=== PATIENT | male | born 1945 | race Caucasian/White ===

== ENCOUNTER 2021-07-18 16:01 | Inpatient (IN) | payer MEDICARE ==
[~2021-07-18] VITALS: Ht 177.8 cm; Wt 72.6 kg
[2021-07-18 16:43] LABS: BASOPHILS ABSOLUTE AUTO 0.03 K/mm3 (0.00-0.23); BASOPHILS PERCENT AUTO 0 % (0-2); EOSINOPHILS ABSOLUTE AUTO 0.02 K/mm3 (0.00-0.68); EOSINOPHILS PERCENT AUTO 0 % (0-6); Hematocrit 31.8 % (37.0-53.0); Hemoglobin 10.6 g/dL (13.5-17.5); IMMATURE GRAN PERCENT AUTO 1 % (0-1); LYMPHOCYTES ABSOLUTE AUTO 0.41 K/mm3 (0.84-5.20); LYMPHOCYTES PERCENT AUTO 4 % (21-46); MONOCYTES ABSOLUTE AUTO 0.52 K/mm3 (0.16-1.47); MONOCYTES PERCENT AUTO 5 % (4-13); Mean Corpuscular HGB 34.9 pg (26.0-34.0); Mean Corpuscular HGB Conc 33.3 g/dL (31.5-36.5); Mean Corpuscular Volume 105 fL (80-100); Mean Platelet Volume 12.1 fL (9.1-12.4); NEUTROPHILS ABSOLUTE AUTO 8.93 K/mm3 (1.96-9.15); NEUTROPHILS PERCENT AUTO 89 % (41-73); Platelet Count 153 K/mm3 (150-400); RDW Coefficient Variation 14.2 % (11.7-14.2); RDW Standard Deviation 54.5 fL (35.1-46.3); Red Blood Cell Count 3.04 M/mm3 (4.30-5.90); White Blood Cell Count 10.01 K/mm3 (4.00-11.30)
[2021-07-18 16:58] LABS: International Normalized Ratio 1.43; Prothrombin Time Results 14.7 Sec (9.7-11.5)
[2021-07-18 17:02] LABS: Albumin, Blood 1.8 g/dL (3.4-5.0); Albumin/Globulin Ratio 0.4 (0.8-1.8); Bun/Creatinine Ratio 16.7 (12.0-20.0); Calcium, Blood 8.8 mg/dL (8.5-10.1); Creatinine, Blood 2.1 mg/dL (0.60-1.20); Globulin, Blood 4.2 g/dL (2.2-4.0); Potassium, Blood 2.8 mmol/L (3.5-5.5)
[2021-07-18] MEDS ORDERED: TAMSULOSIN HCL0.4 M1 PO (20:41)
[2021-07-18] MEDS ORDERED: POTCHL20ER PO (20:47)
[2021-07-18] MEDS ORDERED: Serevent Disku50 MCG IH (20:47)
[2021-07-18] MEDS ORDERED: OMEP20ER PO (20:47)
[2021-07-18] MEDS ORDERED: SPIRIVA RESPIMAT4 G3 IH (20:48)
[2021-07-18] MEDS ORDERED: Ventolin/Prove6.7 GM INH (20:48)
--- NOTE | 2021-07-18 21:55 | NUR ---
2150 recieved report from CRISTHIAN Ochoa RN here at [facility]--------->Pt to go into room 9 [facility] TERI Villegas
[2021-07-18 22:08] LABS: Hematocrit 25.1 % (37.0-53.0); Hemoglobin 8.3 g/dL (13.5-17.5)
[2021-07-18 22:25] LABS: Bun/Creatinine Ratio 18.5 (12.0-20.0); Creatinine, Blood 2.11 mg/dL (0.60-1.20); Potassium, Blood 4.5 mmol/L (3.5-5.5)
[2021-07-19 02:35] LABS: BASOPHILS ABSOLUTE AUTO 0.01 K/mm3 (0.00-0.23); BASOPHILS PERCENT AUTO 0 % (0-2); EOSINOPHILS ABSOLUTE AUTO 0.02 K/mm3 (0.00-0.68); EOSINOPHILS PERCENT AUTO 0 % (0-6); Hematocrit 26.3 % (37.0-53.0); Hemoglobin 8.7 g/dL (13.5-17.5); IMMATURE GRAN ABSOLUTE AUTO 0.05 K/mm3 (0.00-0.10); IMMATURE GRAN PERCENT AUTO 1 % (0-1); LYMPHOCYTES ABSOLUTE AUTO 0.36 K/mm3 (0.84-5.20); LYMPHOCYTES PERCENT AUTO 6 % (21-46); MONOCYTES ABSOLUTE AUTO 0.32 K/mm3 (0.16-1.47); MONOCYTES PERCENT AUTO 6 % (4-13); Mean Corpuscular HGB 35.2 pg (26.0-34.0); Mean Corpuscular HGB Conc 33.1 g/dL (31.5-36.5); Mean Corpuscular Volume 107 fL (80-100); Mean Platelet Volume 11.2 fL (9.1-12.4); NEUTROPHILS ABSOLUTE AUTO 4.86 K/mm3 (1.96-9.15); NEUTROPHILS PERCENT AUTO 86 % (41-73); Platelet Count 116 K/mm3 (150-400); RDW Coefficient Variation 14.3 % (11.7-14.2); RDW Standard Deviation 56.5 fL (35.1-46.3); Red Blood Cell Count 2.47 M/mm3 (4.30-5.90); White Blood Cell Count 5.62 K/mm3 (4.00-11.30)
[2021-07-19 02:50] LABS: International Normalized Ratio 1.35; Prothrombin Time Results 13.9 Sec (9.7-11.5)
[2021-07-19 03:03] LABS: Albumin, Blood 1.5 g/dL (3.4-5.0); Albumin/Globulin Ratio 0.4 (0.8-1.8); Bilirubin, Total 7.1 mg/dL (0.1-1.0); Calcium, Blood 7.7 mg/dL (8.5-10.1); Creatinine, Blood 2.1 mg/dL (0.60-1.20); Globulin, Blood 3.4 g/dL (2.2-4.0); Total Protein, Blood 4.9 g/dL (6.4-8.2)
--- NOTE | 2021-07-19 09:44 | NUR ---
AM NOTE: PATIENT ALERT AND ORIENTED X4. VERY WEAK AND LETHARGIC. ABLE TO MOVE ALL EXTREMITIES. DENIES NUMBNESS/TINGLING. SKIN OVERALL YELLOW. PERRLA. ON ROOM AIR SATING ABOVE 95%. COMPLAINS OF INTERMIT SOB. LUNGS SOUNDING DIM AND CLEAR. INCREASED RR AT REST, AT TIMES UP IN 30'S. TELE SHOWING SINUS RHYTHM/SINUS TACH WITH HR 90-110'S. SOFT BP, STABLE MAP. DENIES CHEST PAIN/PRESSURE. DISTENDED ABDOMEN. DENIES ABDOMINAL PAIN/NAUSEA HYPOACTIVE BOWEL TONES. ONE EPISODE OF DIARRHEA THIS AM. BROWN IN COLOR AND LIQUID/JELLY LIKE. NO SIGNS OF BLEED. DR. BUCK CALLED THIS AM, LET THIS RN KNOW THAT THERE ARE NO ENDO NURSES THIS WEEKEND. UPDATED ABOUT STOOL THIS AM. MINIMAL URINE OUTPUT, BLADDER SCAN PRN. LR AND PROTONIX INFUSING AT THIS TIME. CLEAR LIQUID DIET. WILL CONTINUE TO MONITOR.
--- NOTE | 2021-07-19 12:39 | NUR ---
UPDATE: DR. BRADSHAW IN TO SEE PATIENT. PLAN TO TRANSFUSE 1 UNIT OF BLOOD. NORMAL SALINE WITH KCL INFUSING AT THIS TIME. PATIENT EATING LUNCH. BLOOD PRESSURE SOFT, WILL CONTINUE TO MONITOR. NO URINE OUTPUT YET THIS SHIFT. BLADDER SCAN DONE, 127 ML SHOWN. WILL CONTINUE TO MONITOR.
[2021-07-19 13:21] LABS: Source, Urine Clean Catch
[2021-07-19 13:26] LABS: Appearance, Urine Turbid (Clear); Blood, Urine 1+ (Neg); Color, Urine Brown (P-Yellow); Glucose Qualitative, Urine Neg (Neg); Ketones, Urine 2+ (Neg); Leukocyte Esterase, Urine 1+ (Neg); Nitrite, Urine Pos (Neg); Protein, Urine 2+ (Neg); Urobilinogen, Urine 3+ (Normal)
[2021-07-19 13:49] LABS: Bilirubin, Urine 3+ (Neg)
[2021-07-19 13:50] LABS: Bacteria Many /hpf; Squamous Epithelial Cells Few /hpf (Few)
[2021-07-19 13:51] LABS: Hyaline Casts 0-2 /lpf (0-2)
[2021-07-19 13:54] LABS: Mucus Light (0-Heavy)
--- NOTE | 2021-07-19 17:20 | NUR ---
SHIFT SUMMARY: NO ACUTE CHANGES, PATIENT REMAINS VERY TIRED AND LETHARGIC. SLEEPING MOST OF AFTERNOON/EVENING. ALERT AND ORIENTED. AT TIMES SLOW TO RESPOND. REMAINS ON ROOM AIR. NO CHANGES IN TELE - SINUS RHYTHM/SINUS TACH WITH HR 90-110'S. DENIES CHEST PAIN/PRESSURE. BP ON SOFTER SIDE. SEE CHARTED VITALS. CALL PLACED TO UPDATE DR. BRADSHAW ON BP. NO NEW ORDERS, THIS RN TO CONTINUE TO MONITOR BP CLOSELY. 1 UNIT OF PACKED RBC INFUSED. NS WITH 20 MEQ OF KCL INFUSING AT 75 ML/HR. NO SIGNS OF BLEEDING. NO STOOLS SINCE THIS AM. BLADDER SCANNED X2 THIS SHIFT. URINE OUTPUT 200ML TOTAL SO FAR, VERY DARK BRADY/BROWN COLORED URINE. TOLERATING FULL LIQUID DIET AT THIS TIME. EATING MODERATE AMOUNT. CALL LIGHT IN REACH. WILL CONTINUE TO MONITOR.
--- NOTE | 2021-07-20 03:57 | NUR ---
Overnoc with acid reflux, paged and ordered pepcid 20mg one time dose, some relief but I suspect he will need more coverage than current regimine prilosec 40mg BID. VSS, room air, afebrile, one large dark brown stool formed, will continue to monitor TERI Villegas
[2021-07-20 04:58] LABS: Hematocrit 30.4 % (37.0-53.0); Hemoglobin 10.1 g/dL (13.5-17.5); Mean Corpuscular HGB 35.1 pg (26.0-34.0); Mean Corpuscular HGB Conc 33.2 g/dL (31.5-36.5); Mean Corpuscular Volume 106 fL (80-100); Mean Platelet Volume 11.2 fL (9.1-12.4); Platelet Count 134 K/mm3 (150-400); RDW Coefficient Variation 15.7 % (11.7-14.2); RDW Standard Deviation 61.7 fL (35.1-46.3); Red Blood Cell Count 2.88 M/mm3 (4.30-5.90); White Blood Cell Count 4.27 K/mm3 (4.00-11.30)
[2021-07-20 05:14] LABS: International Normalized Ratio 1.28; Prothrombin Time Results 13.2 Sec (9.7-11.5)
[2021-07-20 05:43] LABS: Albumin, Blood 1.4 g/dL (3.4-5.0); Anion Gap 13 mmol/L (6-16); Blood Urea Nitrogen 40 mg/dL (8-24); Bun/Creatinine Ratio 32.3 (12.0-20.0); CO2, Blood 21 mmol/L (21-32); Chloride, Blood 104 mmol/L (98-108); Creatinine, Blood 1.24 mg/dL (0.60-1.20); Glomerular Filtration Rate 61 (60-); Glucose, Blood 108 mg/dL (70-99); Phosphorus, Blood 2.5 mg/dL (2.5-4.9); Potassium, Blood 3.3 mmol/L (3.5-5.5); Sodium, Blood 138 mmol/L (136-145)
--- NOTE | 2021-07-20 10:02 | NUR ---
AM NOTE: PATIENT ALERT AND ORIENTED X4. NEURO WNL. VERY LETHARGIC AND TIRED. WEAKNESS THROUGHOUT. TELE SHOWING SINUS TACH WITH HR 100-110'S. DENIES CHEST PAIN/PRESSURE. BP ON SOFTER SIDE. ON ROOM AIR SATING HIGH 90'S. LUNGS SOUNDING CLEAR. OCCASIONAL SOB WITH TALKING AND AT REST IN BED. DENIES ABDOMINAL PAIN/NAUSEA. COMPLAINS OF ACID REFLUX SYMPTOMS, MORN OMEPRAZOLE GIVEN WITH NO RELIEF. CALL PLACED TO DR. BRADSHAW, MESSAGE LEFT. PATIENT WANTING TO HOLD OFF ON OTHER MORN MEDS UNTIL ACID REFLUX RESOLVES. NO BM YET THIS SHIFT. USING URINAL AND OCCASIONAL INCONTINENCE. BLADDER SCAN NEEDED. DR. DOUGHERTY IN TO SEE PATIENT THIS AM, NO NEW ORDERS. NS WITH KCL INFUSING AT 75 ML/HR. CALL LIGHT IN REACH. WILL CONITNUE TO MONITOR.
--- NOTE | 2021-07-20 13:15 | NUR ---
UPDATE - TELE EVENT SHOWING 9 RUN BEAT OF VTACH, NONSYMPTOMATIC. PATIENT ALSO STILL COMPLAINING OF ACID REFLUX, NO RELIEF WITH MAALOX. DR. NATION HERE AND UPDATED IN PERSON. VITALS SIGNS REMAINS STABLE. BROTHER AND SISTER IN ROOM.
--- NOTE | 2021-07-20 18:18 | NUR ---
SHIFT SUMMARY: NO ACUTE CHANGES. SEE PREVIOUS NOTE. NO CHANGES TO NEURO. ON ROOM AIR. TELE REMAINS SINUS TACH WITH HR 100-110'S. DENIES CP. DENIES NAUSEA. COMPLAINS OF ACID REFLUX THROUGHOUT SHIFT WITH MODERATE RELIEF WITH INTERVENTIONS, SEE EMAR. NS WITH KCL INFUSING AT THIS TIME. USING URINAL. NO BOWEL MOVEMENTS THIS SHIFT. PHYSICAL THERAPY ORDERED. BROTHER AND IN TO VISIT. CALLING FOR NEEDS. Q2 TURNING AND NEEDED. THIS RN IN TO HELP PATIENT SIT ON EDGE OF BED AND DO SOME LEG EXERCISES. VERY WEAK OVERALL. UNABLE TO STAND SAFELY WITH THIS RN AT THAT TIME. WILL CONTINUE TO MONITOR AND REPORT OFF TO ONCOMING RN.
[2021-07-21 04:28] LABS: BASOPHILS ABSOLUTE AUTO 0.01 K/mm3 (0.00-0.23); BASOPHILS PERCENT AUTO 0 % (0-2); EOSINOPHILS ABSOLUTE AUTO 0.05 K/mm3 (0.00-0.68); EOSINOPHILS PERCENT AUTO 1 % (0-6); Hematocrit 31.3 % (37.0-53.0); Hemoglobin 10.3 g/dL (13.5-17.5); IMMATURE GRAN ABSOLUTE AUTO 0.05 K/mm3 (0.00-0.10); IMMATURE GRAN PERCENT AUTO 1 % (0-1); LYMPHOCYTES ABSOLUTE AUTO 0.41 K/mm3 (0.84-5.20); LYMPHOCYTES PERCENT AUTO 9 % (21-46); MONOCYTES ABSOLUTE AUTO 0.35 K/mm3 (0.16-1.47); MONOCYTES PERCENT AUTO 8 % (4-13); Mean Corpuscular HGB Conc 32.9 g/dL (31.5-36.5); Mean Corpuscular Volume 107 fL (80-100); NEUTROPHILS ABSOLUTE AUTO 3.51 K/mm3 (1.96-9.15); NEUTROPHILS PERCENT AUTO 80 % (41-73); Platelet Count 169 K/mm3 (150-400); RDW Coefficient Variation 15.4 % (11.7-14.2); RDW Standard Deviation 60.8 fL (35.1-46.3); Red Blood Cell Count 2.94 M/mm3 (4.30-5.90); White Blood Cell Count 4.38 K/mm3 (4.00-11.30)
[2021-07-21 04:45] LABS: International Normalized Ratio 1.17; Prothrombin Time Results 12.2 Sec (9.7-11.5)
[2021-07-21 05:02] LABS: Albumin, Blood 1.6 g/dL (3.4-5.0); Albumin/Globulin Ratio 0.4 (0.8-1.8); Bilirubin, Total 3.4 mg/dL (0.1-1.0); Bun/Creatinine Ratio 42.6 (12.0-20.0); Calcium, Blood 8.2 mg/dL (8.5-10.1); Creatinine, Blood 0.73 mg/dL (0.60-1.20); Globulin, Blood 3.7 g/dL (2.2-4.0); Potassium, Blood 3.8 mmol/L (3.5-5.5); Total Protein, Blood 5.3 g/dL (6.4-8.2)
--- NOTE | 2021-07-21 06:02 | NUR ---
SHIFT SUMMARY A/O X3. VITAL SIGNS STABLE. PT REPORTS FEELING BETTER THIS EVENING AND STATES THAT HIS ACID REFLUX HAS IMPROVED. MINIMAL VOIDS THIS SHIFT. PT SLEPT THROUGHOUT THE NIGHT. NO PAIN REPORTED. TOLERATING PO INTAKE. WILL CONTINUE TO MONITOR AND REPORT TO ONCOMING RN.
[2021-07-21 17:20] LABS: Albumin, Blood 1.6 g/dL (3.4-5.0)
--- NOTE | 2021-07-21 17:32 | NUR ---
Shift Summary Pt alert, oriented to person, place, event, time; intermittent confusion noted when first waking up; flat and withdrawn, cooperative with care. Pt resting in bed, encouraged to move q2 turn, pt denlines assistance. Pt denies pain, chest pain, sob, nausea and and dizziness. Pt report gerd symptoms, abd mod distended, firm with hypoactive bowel tones X4 quad, appears to be tolerating full liquid diet well. Pt tele sinus tach this am, bp stable. ls clear t/o dim bases, spo >90% on ra, breathing even and unlabored. CT abd compelted this am, Dr Barraza placed order for Gi consult, notified Dr Barraza no GI for the next 4 days. Plans for paracentesis tomorrow 07/22/21 with albumin administration. Other vss. No other acute changes noted. Will continue to monitor unitl report given to oncoming rn.
[2021-07-22 04:33] LABS: BASOPHILS ABSOLUTE AUTO 0.02 K/mm3 (0.00-0.23); BASOPHILS PERCENT AUTO 0 % (0-2); EOSINOPHILS ABSOLUTE AUTO 0.08 K/mm3 (0.00-0.68); EOSINOPHILS PERCENT AUTO 2 % (0-6); Hematocrit 32.2 % (37.0-53.0); Hemoglobin 10.3 g/dL (13.5-17.5); IMMATURE GRAN ABSOLUTE AUTO 0.08 K/mm3 (0.00-0.10); IMMATURE GRAN PERCENT AUTO 2 % (0-1); LYMPHOCYTES ABSOLUTE AUTO 0.51 K/mm3 (0.84-5.20); LYMPHOCYTES PERCENT AUTO 11 % (21-46); MONOCYTES ABSOLUTE AUTO 0.29 K/mm3 (0.16-1.47); MONOCYTES PERCENT AUTO 6 % (4-13); Mean Corpuscular HGB 34.8 pg (26.0-34.0); Mean Corpuscular Volume 109 fL (80-100); NEUTROPHILS PERCENT AUTO 79 % (41-73); Platelet Count 219 K/mm3 (150-400); RDW Coefficient Variation 15.1 % (11.7-14.2); RDW Standard Deviation 61.4 fL (35.1-46.3); Red Blood Cell Count 2.96 M/mm3 (4.30-5.90); White Blood Cell Count 4.78 K/mm3 (4.00-11.30)
[2021-07-22 05:05] LABS: Albumin, Blood 1.6 g/dL (3.4-5.0); Albumin/Globulin Ratio 0.4 (0.8-1.8); Bilirubin, Total 2.8 mg/dL (0.1-1.0); Calcium, Blood 7.9 mg/dL (8.5-10.1); Creatinine, Blood 0.54 mg/dL (0.60-1.20); Globulin, Blood 3.7 g/dL (2.2-4.0); Potassium, Blood 4.4 mmol/L (3.5-5.5); Total Protein, Blood 5.3 g/dL (6.4-8.2)
--- NOTE | 2021-07-22 05:12 | NUR ---
SHIFT SUMMARY RECEIVED REPORT FROM TERI MCCOY AT APPROX 0045 AND ASSUMED CARE OF PATIENT. PT A&OX4, SP02>92 %ON RA. TELEMETRY SHOWS SINUS TACH CURRENTLY. USES URINAL IN BED. SLEPT THROUGH SECOND HALF OF SHIFT. IV SALINE LOCKED. CALL LIGHT IN REACH.
[2021-07-22 10:13] LABS: Automated BF WBC Count 4.907 K/mm3 (0-999); Body Fluid WBC Count 4907 /mm3 (0-999)
[2021-07-22 10:29] LABS: Lactate Dehydrogenase, Body Fl 257 U/L
[2021-07-22 10:30] LABS: Glucose, Body Fluid 86 mg/dL
[2021-07-22 10:39] LABS: Albumin, Body Fluid 0.7 g/dL
[2021-07-22 10:41] LABS: Protein, Body Fluid 1.6 g/dL
[2021-07-22 11:36] LABS: RBC Count, Body Fluid 56 /mm3 (0-0)
[2021-07-22 11:39] LABS: Appearance, Body Fluid Hazy (Clear); Color, Body Fluid Yellow (None-Yellow); Total Cell Count, Body Fluid 100
--- NOTE | 2021-07-22 16:58 | NUR ---
Shift Summary Pt alert, oriented x3; calm and coopeative with care. Up to chair with 1person assist. Pt has wet weak cough this am and reporting increased sob, notified Dr Barraza, new order for chest xray and st eval. Spo2 95% on ra. Tele sinus tach, bp soft but stable. Pt has paracentesis this am with 2.35L out. Abd moderatly distended, firm and tender on palp, pt reports gerd symptoms. Othe vss. No other acute changes noted. Will conitnue to monitor until report given to oncoming rn.
[2021-07-23 03:46] LABS: BASOPHILS ABSOLUTE AUTO 0.03 K/mm3 (0.00-0.23); BASOPHILS PERCENT AUTO 0 % (0-2); EOSINOPHILS ABSOLUTE AUTO 0.04 K/mm3 (0.00-0.68); EOSINOPHILS PERCENT AUTO 1 % (0-6); Hematocrit 31.6 % (37.0-53.0); Hemoglobin 10.1 g/dL (13.5-17.5); IMMATURE GRAN ABSOLUTE AUTO 0.07 K/mm3 (0.00-0.10); IMMATURE GRAN PERCENT AUTO 1 % (0-1); LYMPHOCYTES PERCENT AUTO 7 % (21-46); MONOCYTES ABSOLUTE AUTO 0.41 K/mm3 (0.16-1.47); MONOCYTES PERCENT AUTO 6 % (4-13); Mean Corpuscular HGB 34.7 pg (26.0-34.0); Mean Corpuscular Volume 109 fL (80-100); Mean Platelet Volume 10.4 fL (9.1-12.4); NEUTROPHILS ABSOLUTE AUTO 5.77 K/mm3 (1.96-9.15); NEUTROPHILS PERCENT AUTO 85 % (41-73); Platelet Count 278 K/mm3 (150-400); RDW Coefficient Variation 14.8 % (11.7-14.2); RDW Standard Deviation 60.5 fL (35.1-46.3); Red Blood Cell Count 2.91 M/mm3 (4.30-5.90); White Blood Cell Count 6.82 K/mm3 (4.00-11.30)
[2021-07-23 04:07] LABS: Albumin, Blood 1.8 g/dL (3.4-5.0); Albumin/Globulin Ratio 0.5 (0.8-1.8); Bilirubin, Total 2.9 mg/dL (0.1-1.0); Bun/Creatinine Ratio 30.2 (12.0-20.0); Calcium, Blood 8.5 mg/dL (8.5-10.1); Creatinine, Blood 0.56 mg/dL (0.60-1.20); Globulin, Blood 3.4 g/dL (2.2-4.0); Potassium, Blood 4.8 mmol/L (3.5-5.5); Total Protein, Blood 5.2 g/dL (6.4-8.2)
--- NOTE | 2021-07-23 05:58 | NUR ---
BUNGHOLE BORER SUMMARY PT IS ALERT WITH INTERMITTANT CONFUSION. PT'S VS WNL AND STABLE W A PEAK TEMP OF 99.2. PT HAS HAD A HACKING PRODUCTIVE COUGH THIS SHIFT WHICH HAS BEEN CONCERNING DUE TO HIS POOR SWALLOWING WITH PILLS IN APPLESAUCE AND THIN LIQUIDS W NO STRAW. TELE SHOWING ST 100-115 THIS SHIFT. PT AWAKE FOR MOST OF THE NIGHT MAINLY DUE TO COUGH KEEPING HIM UP. PT REFUSING SOME TURNS THIS SHIFT BUT PARTICIPATED IN MOST OF HIS CARE. WILL REPORT TO ONCOMING RN.
--- NOTE | 2021-07-23 07:55 | NUR ---
Am note Pt alert, oriented x3, calm and cooperative with care. Up with 1 person assist to chair with walker and gaitbelt. Pt denies pain, chest pain, sob, nausea and dizziness. Spo2 >90% on ra, ls clear in upper loves, dim t/o. Tele sinus tach pvc, bp soft but stable. Abd moderately distended, firm, tender, hypoactive bt x4 quad. Other vss. No s/sx of distress noted. Will continue to monitor.
--- NOTE | 2021-07-23 17:58 | NUR ---
Shift Summary No acute changes t/o shift. Pt up in chair this evening, immediately wanting to go back to bed, educated pt on activity tolerence, aggreable to stay up in chair. Med with tele status, vss. Will continue to monitor until report given to oncoming rn.
--- NOTE | 2021-07-23 20:07 | NUR ---
CARE ASSUMPTION PT IS LYING IN BED W O2 SATS >92% ON RM AIR. PT IN NO DISTRESS AND DENYING ANY PAIN OR NAUSEA AT THIS TIME. PT STILL APPEARING VERY TIRED BUT IS ENGAGINNG IN CONVERSATION. PT RESPONDING IN SHORT SENTANCES AND IS DYSPNEIC W ANY EXERTION. VSS AND AFEBRILE. TELE SHOWING ST IN 110'S. PT DENYING ANY FURTHER NEEDS AT THIS TIME.
--- NOTE | 2021-07-24 06:31 | NUR ---
CLIPPER COUNTERS SUMMARY PT IS ALERT BUT HAS BEEN MORE CONFUSED THIS SHIFT COMPARED TO THE PREVIOUS NIGHT. THE PT HAS BEEN UNDRESSING HIMSELF BUT WHEN ASKED WHY HE IS DOING THAT HE SAYS HE DOESNT KNOW. THE PT'S VS HAVE REMAINED STABLE AND O2 SATS >90% ON RM AIR. PT AFEBRILE THIS SHIFT. TELE SHOWING ST 100-110'S THIS SHIFT. PT HAD ONE LOOSE BM THIS SHIFT THAT WAS BROWN W NO S/S OF BLEEDING. WILL REPORT TO ONCOMING RN.
[2021-07-24 10:38] LABS: BASOPHILS ABSOLUTE AUTO 0.02 K/mm3 (0.00-0.23); BASOPHILS PERCENT AUTO 0 % (0-2); EOSINOPHILS ABSOLUTE AUTO 0.02 K/mm3 (0.00-0.68); EOSINOPHILS PERCENT AUTO 0 % (0-6); Hematocrit 33.3 % (37.0-53.0); Hemoglobin 10.6 g/dL (13.5-17.5); IMMATURE GRAN ABSOLUTE AUTO 0.07 K/mm3 (0.00-0.10); IMMATURE GRAN PERCENT AUTO 1 % (0-1); LYMPHOCYTES ABSOLUTE AUTO 0.46 K/mm3 (0.84-5.20); LYMPHOCYTES PERCENT AUTO 5 % (21-46); MONOCYTES ABSOLUTE AUTO 0.36 K/mm3 (0.16-1.47); MONOCYTES PERCENT AUTO 4 % (4-13); Mean Corpuscular HGB 34.8 pg (26.0-34.0); Mean Corpuscular HGB Conc 31.8 g/dL (31.5-36.5); Mean Corpuscular Volume 109 fL (80-100); Mean Platelet Volume 10.4 fL (9.1-12.4); NEUTROPHILS ABSOLUTE AUTO 8.05 K/mm3 (1.96-9.15); NEUTROPHILS PERCENT AUTO 90 % (41-73); Platelet Count 302 K/mm3 (150-400); RDW Coefficient Variation 14.6 % (11.7-14.2); RDW Standard Deviation 59.5 fL (35.1-46.3); Red Blood Cell Count 3.05 M/mm3 (4.30-5.90); White Blood Cell Count 8.98 K/mm3 (4.00-11.30)
[2021-07-24 10:44] LABS: Albumin, Blood 1.7 g/dL (3.4-5.0); Albumin/Globulin Ratio 0.4 (0.8-1.8); Bilirubin, Total 2.3 mg/dL (0.1-1.0); Bun/Creatinine Ratio 21.2 (12.0-20.0); Creatinine, Blood 0.71 mg/dL (0.60-1.20); Globulin, Blood 3.9 g/dL (2.2-4.0); Potassium, Blood 4.3 mmol/L (3.5-5.5); Total Protein, Blood 5.6 g/dL (6.4-8.2)
--- NOTE | 2021-07-24 11:59 | NUR ---
ASSUMED CARE OF PT AT 0700. PT COMPLAINING OF ABD PAIN THAT HE DID NOT COMPLAIN OF EALIER THIS MORNING WITH ASSESSMENT. DR NATION NOTIFIED, NEW ORDERS TO BE PLACED.
--- NOTE | 2021-07-24 17:55 | NUR ---
NO OTHER CHANGES T/O SHIFT. PT MEDICATED FOR ABD PAIN AND ABD US ORDERED BY DR NATION TO ASSESS PERITONEAL FLUID. PT RESTING IN BED MOST OF THE DAY, EYES CLOSED, RESPS EVEN AND UNLABORED. CONFUSED AT TIMES. BED ALARM ON FOR SAFETY. PT ABLE TO USE THE CALL LIGHT. PT APPEARS VERY TIRED TODAY, MINIMALLY PARTICIPATING IN HIS CARE, WAS NOT ABLE TO PARTICIPATE IN PT OR ST TODAY. PT'S AT BEDSIDE TODAY. CALL LIGHT IN REACH, WILL CONTINUE TO MONITOR AND GIVE REPORT TO NOC SHIFT RN.
--- NOTE | 2021-07-25 04:17 | NUR ---
PATIENT RECIEVED A TRANSFER FROM PCU. LOW GRADE TEMP NOTED WITH SINUS TACHYCARDIA. PATIENT ALERT AND CONVERSIVE BUT CONFUSED AT TIMES. SKIN INSPECTION REVEALS COCCYX PRESSURE INJURY AND GENERALIZED BRUISING. PATIENT SAT AT 90 DEGREES TO SIP WATER. NO CHOKING NOTED. AVIONICS SHOP SUPERVISOR ACUTE EVENTS OVERNIGHT.
[2021-07-25 07:19] LABS: BASOPHILS ABSOLUTE AUTO 0.04 K/mm3 (0.00-0.23); BASOPHILS PERCENT AUTO 1 % (0-2); EOSINOPHILS ABSOLUTE AUTO 0.05 K/mm3 (0.00-0.68); EOSINOPHILS PERCENT AUTO 1 % (0-6); Hematocrit 31.1 % (37.0-53.0); Hemoglobin 9.9 g/dL (13.5-17.5); IMMATURE GRAN PERCENT AUTO 1 % (0-1); LYMPHOCYTES ABSOLUTE AUTO 0.47 K/mm3 (0.84-5.20); LYMPHOCYTES PERCENT AUTO 7 % (21-46); MONOCYTES ABSOLUTE AUTO 0.44 K/mm3 (0.16-1.47); MONOCYTES PERCENT AUTO 6 % (4-13); Mean Corpuscular HGB 34.6 pg (26.0-34.0); Mean Corpuscular HGB Conc 31.8 g/dL (31.5-36.5); Mean Corpuscular Volume 109 fL (80-100); Mean Platelet Volume 10.1 fL (9.1-12.4); NEUTROPHILS ABSOLUTE AUTO 6.14 K/mm3 (1.96-9.15); NEUTROPHILS PERCENT AUTO 85 % (41-73); Platelet Count 319 K/mm3 (150-400); RDW Coefficient Variation 14.4 % (11.7-14.2); RDW Standard Deviation 57.5 fL (35.1-46.3); Red Blood Cell Count 2.86 M/mm3 (4.30-5.90); White Blood Cell Count 7.24 K/mm3 (4.00-11.30)
[2021-07-25 07:41] LABS: Albumin, Blood 1.6 g/dL (3.4-5.0); Albumin/Globulin Ratio 0.4 (0.8-1.8); Bilirubin, Total 2.4 mg/dL (0.1-1.0); Bun/Creatinine Ratio 21.6 (12.0-20.0); Calcium, Blood 8.8 mg/dL (8.5-10.1); Creatinine, Blood 0.74 mg/dL (0.60-1.20); Globulin, Blood 3.8 g/dL (2.2-4.0); Potassium, Blood 4.7 mmol/L (3.5-5.5); Total Protein, Blood 5.4 g/dL (6.4-8.2)
--- NOTE | 2021-07-25 17:45 | NUR ---
PT IS ALERT ORIENTED X2. PT SEEMED VERY DROWSY TODAY, SLEPT FOR MOST OF THE DAY WAS UP IN THE CHAIR X2 TODAY BUT ONLY FOR A VERY SHORT TIME. THE PT WAS UP WITH 1-2 PERSON ASSIST TO THE BSCX4. PT IS HAVEING GEENISH COLERED WATERY STOOLS. THE PT IS VERY DUSKY IN COLOR. FAMILY WAS IN TO SEE THE PT TODAY. CALL LIGHT IN REACH WILL CONTINUE TO MONITOR AND ASSESS FOR CHANGES
--- NOTE | 2021-07-26 05:13 | NUR ---
SHIFT SUMMARY: PT HAS BEEN VERY FATIGUED THROUGHOUT THIS SHIFT. HIS BP WAS SOFT AT THE BEGINNING, MD WAS NOTIFIED AND HE RECEIVED A 500 ML BOLUS OVER TWO HOURS. HIS BP DID START TO IMPROVE. HE'S HAD A FEW SMALL GREEN LIQUID BM'S AT THE [facility] [place]. HIS ABDOMEN IS STILL TAUT, BUT PT DID NOT HAVE ANY C/O PAIN. HE USES THE CALL LIGHT VERY WELL. HIS BROTHER CALLED LAST NIGHT FOR AN UPDATE AND WOULD LIKE TO SPEAK TO THE MD IF POSSIBLE. I WILL PASS THAT ALONG TO THE DAYSHIFT RN. CALL LIGHT IS WITHIN REACH AND ALARM IS SET FOR PT SAFETY.
--- NOTE | 2021-07-26 08:00 | NUR ---
pt laying in bed watching tv, a/ox3, pleasant and cooperative with care, flat affect, follows commands well, denies pain at this time, lungs are clear t/o, on r/a, no cough noted, hrr, no edema noted, ppp+1, cap refill <3 sec, vs stable, afebrile, iv site to lfa clear and patent, btx4, hypoactive, abd distended, was reported he was having loose stools, skin is c/w/d, maew, general weakness, 2 person to tx, alden, call light in reach.-
--- NOTE | 2021-07-26 18:32 | NUR ---
Xavi had two bouts of loose stools today, reglan was stopped, family in room, no further needs or changes this shift. very poor appetite. call light in reach.
[2021-07-27 04:34] LABS: BASOPHILS ABSOLUTE AUTO 0.05 K/mm3 (0.00-0.23); BASOPHILS PERCENT AUTO 1 % (0-2); EOSINOPHILS ABSOLUTE AUTO 0.05 K/mm3 (0.00-0.68); EOSINOPHILS PERCENT AUTO 1 % (0-6); Hemoglobin 9.9 g/dL (13.5-17.5); IMMATURE GRAN ABSOLUTE AUTO 0.13 K/mm3 (0.00-0.10); IMMATURE GRAN PERCENT AUTO 1 % (0-1); LYMPHOCYTES PERCENT AUTO 6 % (21-46); MONOCYTES ABSOLUTE AUTO 0.72 K/mm3 (0.16-1.47); MONOCYTES PERCENT AUTO 8 % (4-13); Mean Corpuscular HGB 33.2 pg (26.0-34.0); Mean Corpuscular HGB Conc 30.9 g/dL (31.5-36.5); Mean Corpuscular Volume 107 fL (80-100); Mean Platelet Volume 9.9 fL (9.1-12.4); NEUTROPHILS ABSOLUTE AUTO 7.92 K/mm3 (1.96-9.15); NEUTROPHILS PERCENT AUTO 84 % (41-73); Platelet Count 402 K/mm3 (150-400); RDW Coefficient Variation 13.7 % (11.7-14.2); RDW Standard Deviation 54.5 fL (35.1-46.3); Red Blood Cell Count 2.98 M/mm3 (4.30-5.90); White Blood Cell Count 9.47 K/mm3 (4.00-11.30)
--- NOTE | 2021-07-27 04:42 | NUR ---
SHIFT SUMMARY A/OX3, FORGETFUL AT TIMES. 2P MAX ASSIST. CONT/INCONT, ATTENDS IN PLACE. DENIES PAIN OR SOB. TELE ST 100-115. VSS, NO ACUTE CHANGES AT THIS TIME. BED IN LOWEST POSITION WITH CALL LIGHT IN REACH. WILL CONTINUE TO MONITOR AND REPORT TO ONCOMING RN.
[2021-07-27 04:58] LABS: Albumin, Blood 1.4 g/dL (3.4-5.0); Albumin/Globulin Ratio 0.4 (0.8-1.8); Bilirubin, Total 1.8 mg/dL (0.1-1.0); Bun/Creatinine Ratio 26.4 (12.0-20.0); Calcium, Blood 8.9 mg/dL (8.5-10.1); Creatinine, Blood 0.95 mg/dL (0.60-1.20); Potassium, Blood 4.9 mmol/L (3.5-5.5); Total Protein, Blood 5.4 g/dL (6.4-8.2)
--- NOTE | 2021-07-27 06:12 | NUR ---
UPDATE SPOKE WITH PT'S BROTHER, HE IS CONCERNED AFTER RECIEVING A CALL FROM PT STATING THAT HIS EYESIGHT WAS POOR. 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 PT'S BROTHER IS REQUESTING TO RECIEVE AN UPDATE FROM THE MD TODAY. WILL PASS ON TO DAYSHIFT NURSE.
--- NOTE | 2021-07-27 18:02 | NUR ---
pt has had an uneventful day, no stools today, family in to see him, Dr. Blood came in to speak with family. will have a paracentesis tomrrow, no further changes this shift. call light in reach.
--- NOTE | 2021-07-28 05:22 | NUR ---
shift summary 76 yr m admitted on 07/18/21 for gio. no acute changes this shift. PT HAD ONE SMALL BOWEL MOVEMENT BUT LITTLE URINE OUTPUT. HE IS LIKELY TO HAVE ANOTHER PARACENTESIS TODAY. HE HAS BEEN A 1 PERSON ASSIST TO BEDSIDE COMMODE AND USES THE CALL LIGHT APPROPRIATELY. HE APPEARS TO BE CONFUSED AT TIMES AND WOULD SAY RANDOM THINGS OUT LOUD IN THE MIDDLE OF THE NIGHT. PERHAPS HE WAS TALKING IN HIS SLEEP.
[2021-07-28 09:40] LABS: Automated BF WBC Count 3.343 K/mm3 (0-999); Body Fluid WBC Count 3343 /mm3 (0-999)
--- NOTE | 2021-07-28 09:40 | NUR ---
LOW BP: UPON RETURN FROM PARACENTESIS, PATIENT HAS HAD LOW BP (80/46). PATIENT ANSWERING QUESTIONS AT BASELINE, BUT IS VERY FATIGUED. DISCUSSED WITH DR. WHYTE. NEW ORDERS FOR ALBUMIN PLACED. NOTIFIED PHARMACY.
[2021-07-28 09:56] LABS: Protein, Body Fluid 2.1 g/dL
[2021-07-28 10:15] LABS: Appearance, Body Fluid Clear (Clear); Color, Body Fluid Yellow (None-Yellow); RBC Count, Body Fluid 88 /mm3 (0-0)
--- NOTE | 2021-07-28 10:19 | NUR ---
IMPROVING BP: PATIENT'S BLOOD PRESSURE CONTINUES TO IMPROVE WITH INTERVENTIONS. PATIENT REPORTS HE IS FEELING COMFORTABLE. ABDOMEN IS SOFT AND NON-TENDER. DRESSING OVER PARACENTESIS SITE IS C/D/I. PATIENT REPORTS FATIGUE AND IS RESTING IN BED. REFUSES BREAKFAST AND THE REST OF HIS MORNING MEDICATIONS.
[2021-07-28 10:44] LABS: Total Cell Count, Body Fluid 100
--- NOTE | 2021-07-28 10:55 | NUR ---
STABLE BUT LOW BP: PATIENT BP'S ARE STABLE IN THE 80'S SBP. NO CHANGES TO PATIENT STATUS. NOTIFIED DR. WHYTE. NO NEW ORDERS AT THIS TIME. HOURLY BP'S WILL CONTINUE. PRINTING PRESS OPERATOR AWARE OF PATIENT STATUS.
--- NOTE | 2021-07-28 14:45 | NUR ---
TUBE FEEDS AND STATUS REPORT: FAMILY REQUESTING THAT PATIENT BE STARTED ON TUBE FEEDING TODAY. DISCUSSED WITH DR. WHYTE AND PROVIDED A STATUS UPDATE IN REGARDS TO BP (PATIENT CONTINUES TO STAY WITH SBP'S IN THE 80S. NO CHANGE TO PATIENT STATUS. PATIENT CONTINUES TO BE FATIGUED AND DROWSY.). NEW ORDERS PLACED.
--- NOTE | 2021-07-28 19:17 | NUR ---
END OF SHIFT SUMMARY: PATIENT DENIED PAIN OR DISCOMFORT THROUGHOUT THE SHIFT. PATIENT LEFT THE UNIT FOR PARACENTESIS THIS MORNING. 3.9 L REMOVED. PATIENT ARRIVED BACK TO THE UNIT WITH A SOFT, NON-TENDER ABDOMEN. THROUGHOUT THE SHIFT, PATIENT HAS HAD SBP'S IN THE 80S (SEE NURSES NOTE). PATIENT FATIGUED THROUGHOUT THE SHIFT. PATIENT IS DROWSY AND SLOW TO RESPOND. NO DIARRHEA DURING THE SHIFT. URINE OUTPUT IS LOW AND TEA-COLORED. PATIENT IS CONTINENT. PATIENT VISITED BY SPEECH THERAPY. PATIENT REFUSED PO INTAKE, STATING THAT HE IS "NOT HUNGRY". DOBHOFF PLACED LATE THIS AFTERNOON AND TUBE FEEDING STARTED PER ORDERS (AFTER CXR AND RADIOLOGY VERIFICATION). PATIENT TOLERATED WELL.
--- NOTE | 2021-07-29 02:32 | NUR ---
CALLED HOSPITALIST INFORMED HIM THAT PT HAS PULLED THE SECOND NASOGASTRIC FEEDING TUBE. PT IS REFUSING ANOTHER FEEDING TUBE. PT IS YELLING FOR HELP AND UPSET. THE PURPOSE OF THE FEEDING TUBE WAS EXPLAINED TO THE PT, BUT HE STATES IT IS TORTURE. WHEN INFORMED OF THIS, THE HOSPITALIST HAS ORDERED FOR THE PT TO REST FOR TONIGHT. I WILL PASS ON TO THE DAY RN HOW POORLY THE PT RESPONDED TO THIS PLAN OF CARE.
--- NOTE | 2021-07-29 04:44 | NUR ---
SHIFT SUMMARY ADMITTED FOR LETITIA. FULL CODE. TELEMETRY: NSR @ 94 BPM. PARACENTESIS PERFORMED YESTERDAY. PT REMOVED DOBHOFF FEEDING TUBE THAT WAS INSTALLED ON AM SHIFT. I RECEIVED AN ORDER FOR RESTRAINTS AND A NEW DOBHOFF FEEDING TUBE TO BE PUT IN, WHICH I DID. THE PT WAS ABLE TO REMOVE THE NEWEST DOBHOFF TUBE. HE WAS YELLING "FIRE" AND "CALL THE POLICE". HE TOLD ME THAT HE DID NOT WANT ANOTHER FEEDING TUBE. HE WAS VERY AGITATED AND SEEMINGLY CONFUSED. I DID REMOVE THE RESTRAINTS AND CALL THE HOSPITALIST. THE HOSPITALIST INSTRUCTED ME TO NOT PUT IN A THIRD FEEDING TUBE THIS SHIFT. FAMILY CALLED ME (THE PT'S BROTHER), AND THE PT'S BROTHER SEEMED CONFLICTED ABOUT HOW TO PROCEED WITH THE PLAN OF CARE. I DID CALL FOR A PALLIATIVE CARE CONSULT TO HOPEFULLY ASSIST THIS FAMILY. THIS PT IS FAILURE TO THRIVE WITH LITTLE TO NO PO INTAKE. HYPOTENSION NOTED THROUGHOUT SHIFT.
[2021-07-29 05:44] LABS: Magnesium, Blood 1.5 mg/dL (1.6-2.4); Phosphorus, Blood 4.5 mg/dL (2.5-4.9)
--- NOTE | 2021-07-29 11:30 | NUR ---
PATIENT STATUS: DISCUSSED PATIENT STATUS WITH THE MENAGERIE SUPERINTENDENT HUNTER Green. SHE WAS ABLE TO DISCUSS CURRENT STATUS WITH DR. WHYTE. SPOKE WITH DR. WHYTE ON THE PHONE. NEW ORDERS TO BE PLACED AND SOON TO ROUND ON THE PATIENT.
--- NOTE | 2021-07-29 12:30 | NUR ---
DOBHOFF: DISCUSSED CURRENT STATUS WITH DR. WHYTE (INCLUDING LOW BP'S AND PATIENT'S INCREASED ALERTNESS BUT ALSO CONFUSION). PATIENT REPORTS HE WOULD LIKE THE DOBHOFF REPLACED. DR. WHYTE AWARE AND DOBHOFF TO BE REPLACED.
--- NOTE | 2021-07-29 15:56 | NUR ---
Pt resting in bed upon and is A&OX2. Pt unable to verbalize appropriate place and reason for hospital stay. Pt able to verbalize current year after looking at white board. Pt denies pain and dyspnea at this time. Pt appears significantly lethargic and struggles keeping his eyes open. Pt's spouse Kisha at bedside. Offered therapeutic listening as Kisha reports Pt having good family support. Plan is for family to take turns staying with Pt to help keep him calm. Gentle education regarding disease process and the importance of routine conversations with PCP to develop plans for the future. Offered therapeutic listening and answered questions. Kisha expresses appreciation. Palliative Care will remain available.
--- NOTE | 2021-07-29 16:10 | NUR ---
PATIENT STATUS: CALLED DR. WHYTE TO DISCUSS THE INCREASE IN HEART RATE AND RESPIRATIONS OF THE PATIENT. PATIENT CONTINUES TO HAVE A LOW BUT STABLE BP. PATIENT HAS SOME CRACKLES IN THE BASES IN THE LUNGS. DISCUSSED WITH DR. WHYTE. NEW ORDERS RECEIVED AND PLACED.
[2021-07-29 16:53] LABS: BASOPHILS ABSOLUTE AUTO 0.03 K/mm3 (0.00-0.23); BASOPHILS PERCENT AUTO 0 % (0-2); EOSINOPHILS ABSOLUTE AUTO 0.03 K/mm3 (0.00-0.68); EOSINOPHILS PERCENT AUTO 0 % (0-6); Hematocrit 30.2 % (37.0-53.0); Hemoglobin 9.7 g/dL (13.5-17.5); IMMATURE GRAN ABSOLUTE AUTO 0.06 K/mm3 (0.00-0.10); IMMATURE GRAN PERCENT AUTO 1 % (0-1); LYMPHOCYTES ABSOLUTE AUTO 0.43 K/mm3 (0.84-5.20); LYMPHOCYTES PERCENT AUTO 4 % (21-46); MONOCYTES ABSOLUTE AUTO 0.56 K/mm3 (0.16-1.47); MONOCYTES PERCENT AUTO 6 % (4-13); Mean Corpuscular HGB 33.8 pg (26.0-34.0); Mean Corpuscular HGB Conc 32.1 g/dL (31.5-36.5); Mean Corpuscular Volume 105 fL (80-100); Mean Platelet Volume 9.9 fL (9.1-12.4); NEUTROPHILS ABSOLUTE AUTO 8.98 K/mm3 (1.96-9.15); NEUTROPHILS PERCENT AUTO 89 % (41-73); Platelet Count 327 K/mm3 (150-400); RDW Coefficient Variation 14.1 % (11.7-14.2); RDW Standard Deviation 54.9 fL (35.1-46.3); Red Blood Cell Count 2.87 M/mm3 (4.30-5.90); White Blood Cell Count 10.09 K/mm3 (4.00-11.30)
[2021-07-29 17:15] LABS: Albumin, Blood 2.1 g/dL (3.4-5.0); Albumin/Globulin Ratio 0.6 (0.8-1.8); Bilirubin, Total 1.3 mg/dL (0.1-1.0); Calcium, Blood 9.1 mg/dL (8.5-10.1); Globulin, Blood 3.7 g/dL (2.2-4.0); Potassium, Blood 4.6 mmol/L (3.5-5.5); Total Protein, Blood 5.8 g/dL (6.4-8.2)
[2021-07-30 05:41] LABS: Magnesium, Blood 1.6 mg/dL (1.6-2.4)
[2021-07-30 05:42] LABS: Bun/Creatinine Ratio 28.4 (12.0-20.0); Calcium, Blood 8.7 mg/dL (8.5-10.1); Creatinine, Blood 1.02 mg/dL (0.60-1.20); Phosphorus, Blood 3.8 mg/dL (2.5-4.9); Potassium, Blood 4.3 mmol/L (3.5-5.5)
--- NOTE | 2021-07-30 05:42 | NUR ---
SHIFT SUMMARY ADMITTED FOR LETITIA. FULL CODE. DOBHOFF NASOGASTRIC TUBE IN PLACE. TUBE FEEDINGS INCREASED BY 10 ML/HR TO 30 ML/HR, ORDERED. MEDICATIONS CRUSHED AND GIVEN VIA NG TUBE. PT IS WEAK AND WE ARE DOING Q2 TURNS. HE IS INCONTINENT. FAMILY IS TAKING TURNS BEING PRESENT IN ROOM. THEY DO REQUEST WRIST RESTRAINTS AT NIGHT FOR THE PT. HE DOES IMMEDIATELY TRY TO PULL OUT THE NG TUBE WHEN I REMOVE THE RESTRAINTS FOR REPOSITIONING OF HIS BODY. HE IS CONFUSED. A&O X2. HIS STOMACH IS FIRM AND DISTENDED.
--- NOTE | 2021-07-30 14:12 | NUR ---
Spoke with Dr Blood and discussed case prior to visiting with Pt and family. Dr Blood reports Pt's brother is assisting family with understanding of plan of care. Spoke with Primary RN Samantha prior to visiting with Pt. Pt waxes and waynes with his mentation. Family has been spending the night to assist with Pt's care and mentation. Pt resting in recliner with his eyes closed. Pt's spouse Kisha at bedside. Engaged in gentle discussion regarding code status. Educated on life sustaining treatments including risk factors and implications of CPR. Offered therapeutic listening and reviewed plan of care. Kisha expresses apprciation and will consider Pt's code status after speaking with family. Received verbal permission from Kisha to call Pt's brother. Called and left message with Pt's brother Will with request for a return phone call. Palliative Care will remain available.
--- NOTE | 2021-07-30 14:58 | NUR ---
Late Entry from previous visit. Received call back from Pt's brother Will. Provided update and reviewed plan of care. Discussed Pt's current code status and the importance of family conversation regarding Pt's wishes for life sustaining measures. Will reports thinking Pt's wishes are for DNR but will have further conversation with Pt's spouse. Answered questions and offered therapeutic listening. Will expresses appreciation and reports no other concerns at this time.
--- NOTE | 2021-07-30 19:45 | NUR ---
DOBHOFF PULLED: DURING CHANGE OF SHIFT, WITH FAMILY AT THE BEDSIDE, PATIENT SUDDENLY REACHED UP AND PULLED THE DOBHOFF OUT (PER FAMILY REPORT). PATIENT REPORTED THAT HE WANTED IT OUT, BUT THEN AGREED WITH FAMILY THAT HE WANTED NUTRITION. PATIENT'S AND BROTHER STRONGLY WANT THE DOBHOFF REPLACED. DISCUSSED WITH DR. STRICKLAND. PER DISCUSSION WITH DR. STRICKLAND, FAMILY MADE AWARE OF THE RISKS OF PLACING ANOTHER DOBHOFF (FAMILY DID NOT WANT TO WAIT UNTIL MORNING). FAMILY IS AGREEABLE TO THE RISKS AND WANT THE DOBHOFF REPLACED TONIGHT.
--- NOTE | 2021-07-30 20:06 | NUR ---
END OF SHIFT SUMMARY: PATIENT STARTED THE MORNING FAIRLY ALERT AND INTERACTIVE. PATIENT UP TO CHAIR WITH OT. PATIENT TALKING MINIMALLY WITH FAMILY. ONCE THE PATIENT WAS BACK IN BED, HE WAS FATIGUED AND SLEEPY THROUGHOUT THE REST OF THE SHIFT. PATIENT WOULD ANSWER QUESTIONS WITH ONE WORD. PATIENT WOULD TOUCH DOBHOFF THROUGHOUT THE SHIFT, BUT OTHERWISE LEAVE IT ALONE. FAMILY AT THE BEDSIDE TO ASSIST THROUGHOUT THE SHIFT WITH PROTECTING THE DOBHOFF. PATIENT TOLERATING INCREASES TO FEEDING RATE WITHOUT NOTICABLE NAUSEA OR INCREASED DISCOMFORT. PATIENT REFUSED PAIN MEDICATION THROUGHOUT THE SHIFT. PATIENT DID NOT HAVE A BOWEL MOVEMENT DURING THE SHIFT. PATIENT CONTINUES TO HAVE A STABLE BP WITH SYSTOLIC BP'S IN THE 90S. PATIENT CONTINUES TO BE IN SINUS TACH (PER TELEMETRY) FROM 105-115.
--- NOTE | 2021-07-31 02:05 | NUR ---
NEWEST DOBHOFF PLACEMENT IS VERIFIED CHEST X RAYS COMPLETED. HOSPITALIST HAS READ THE XRAY AND CONFIRMED PLACEMENT. NASOGASTRIC TUBE FEEDING HAS BEGUN @ 20 ML/HR (BEGINNING AGAIN ON LOWEST LEVEL). FAMILY AT BEDSIDE. PT IS RESTRAINED INSTRUCTED, AND AT FAMILY'S REQUEST.
[2021-07-31 04:45] LABS: Calcium, Blood 8.7 mg/dL (8.5-10.1); Creatinine, Blood 1.44 mg/dL (0.60-1.20); Magnesium, Blood 1.7 mg/dL (1.6-2.4); Phosphorus, Blood 4.1 mg/dL (2.5-4.9); Potassium, Blood 4.5 mmol/L (3.5-5.5)
--- NOTE | 2021-07-31 05:24 | NUR ---
SHIFT SUMMARY ADMITTED FOR LETITIA. FULL CODE. HE HAS ASCITES - RECEIVED PARACENTESIS SINCE ADMIT. HIS ABDOMEN IS FIRM AND SWOLLEN. HE HAS GI BLEED, MALNUTRITION, ESOPHAGEAL VARICES. HX OF ETOH, LEUKEMIA. HE HAS BEEN HYPOTENSIVE CONSISTENTLY. TACHYCARDIC & TACHYPNEIC. TELEMETRY: TACHY @ 108. HE IS CONFUSED. PT HAS PULLED OUT 4 DOBHOFF NASOPHARANGEAL FEEDING TUBES, THE LAST ONE HE PULLED WAS WHEN FAMILY WAS AT BEDSIDE THIS SHIFT. PER ORDERS AND AT FAMILY'S REQUEST, I DID INSTALL YET ANOTHER DOBHOFF THIS SHIFT. FOLLOWING THAT, I DID PUT THIS PT INTO RESTRAINTS: BUE SOFT WRIST & MITTS ORDERED. FAMILY REMAINS AT BEDSIDE. TUBE FEEDINGS HAVE RESUMED (SEE PREVIOUS NOTE FOR TIMES & RATES). MONITORING PT'S MENTAL STATUS, LABS, AND VITALS.
--- NOTE | 2021-07-31 11:06 | NUR ---
Met with Pt's brother out in the [place] as Obdulia vargas PT is working with Pt. Reviewed plan of care and events that occured during hotel night auditor. Offered therapeutic listening and answered questions. Pt becoming more confused at night and more clear and appropriate durng the day. Brother Will reports plan to discuss further with Pt's spouse Kisha regarding Pt's code status. Spoke with Obdulia and discussed case. Pt resting in bed and is A&OX3. Pt unable to verbalize appropriate name of hospital and states [facility]. Pt verbalizes appropriately to questions for reason of stay, current year, current town, current season of the year, and current president. Pt V/U of feeding tube and reports no memory of pulling it out. Pt appears tremulous with neck and upper extremities. Discussed plan of care with Pt and he reports being in agreement and wants to get stronger. Spoke with Primary RN Alina and discussed case. Alina agreeable to trial Pt out of restraints. Palliative Care will F/U for supportive and therapeutic visits.
--- NOTE | 2021-07-31 11:35 | NUR ---
DOBHOFF TUBE FEEDING RATE INCREASED TO 30ML/HR
--- NOTE | 2021-07-31 18:10 | NUR ---
PATIENT GETTING SLEEPY. PATIENT AND FAMILY REQUESTING THAT RESTRAINTS BE PUT BACK ON.
--- NOTE | 2021-07-31 18:17 | NUR ---
TUBE FEEDING RATE INCREASED AT 1700 TO 40ML/HR PER THIS IS THE RATE HE WAS AT PRIOR TO PULLING OUT HIS TUBE YESTERDAY.
--- NOTE | 2021-07-31 18:44 | NUR ---
SHIFT SUMMARY PATIENT MORE AWAKE DURING EARLIER PART OF DAY ABLE TO ANSWER ALL QUESTIONS. FAMILY AT BEDSIDE T/O ENTIRE SHIFT. STARTED SHIFT IN RESTRAINTS, ABLE TO TAKE RESTRAINTS OFF MID DAY BUT PATIENT AND FAMILY REQUESTING RESTRAINTS BACK TOWARDS END OF SHIFT HE WAS GETTING SLEEPIER. RECEIVING MEDS AND TUBE FEEDINGS THROUGH DOBHOFF CURRENTLY AT 40ML/HR, TOLERATING WELL. WORKED WITH THERAPY TODAY GETTING UP TO BSC 1PA. SOFT BP. MEDICATED PER APR. WILL CONTINUE TO MONITOR.
--- NOTE | 2021-08-01 01:28 | NUR ---
DR CALLED ABOUT CONCERNING PT VITAL SIGNS. RESPIRATION 24/MIN AND PT STATED HE WAS HAVING CHEST PAINAND COULDN'T GET A DEEP BREATH. HR WAS 120'S AND BP 90/74. DR GAVE NO NEW ORDERS AND BP CANNOT TOLERATE DIURETICS. CHEST X-RAY ORDERED TO BE REVIEWED BY . WILL CONTINUE TO UPDATE
[2021-08-01 04:43] LABS: BASOPHILS ABSOLUTE AUTO 0.02 K/mm3 (0.00-0.23); BASOPHILS PERCENT AUTO 0 % (0-2); EOSINOPHILS ABSOLUTE AUTO 0.05 K/mm3 (0.00-0.68); EOSINOPHILS PERCENT AUTO 1 % (0-6); Hematocrit 28.4 % (37.0-53.0); Hemoglobin 9.1 g/dL (13.5-17.5); IMMATURE GRAN ABSOLUTE AUTO 0.12 K/mm3 (0.00-0.10); IMMATURE GRAN PERCENT AUTO 1 % (0-1); LYMPHOCYTES ABSOLUTE AUTO 0.49 K/mm3 (0.84-5.20); LYMPHOCYTES PERCENT AUTO 5 % (21-46); MONOCYTES ABSOLUTE AUTO 0.72 K/mm3 (0.16-1.47); MONOCYTES PERCENT AUTO 7 % (4-13); Mean Corpuscular Volume 103 fL (80-100); Mean Platelet Volume 10.1 fL (9.1-12.4); NEUTROPHILS ABSOLUTE AUTO 9.22 K/mm3 (1.96-9.15); NEUTROPHILS PERCENT AUTO 87 % (41-73); Platelet Count 237 K/mm3 (150-400); RDW Coefficient Variation 14.2 % (11.7-14.2); RDW Standard Deviation 54.3 fL (35.1-46.3); Red Blood Cell Count 2.76 M/mm3 (4.30-5.90); White Blood Cell Count 10.62 K/mm3 (4.00-11.30)
--- NOTE | 2021-08-01 04:54 | NUR ---
SHIFT SUMMARY PT IS STILL IN RESTRAINTS. CONTINUES TO TRY AND PULL AT WHEN TAKEN OUT FOR CHANGING. PT HAD 2 GREENISH BLACK LIQUID BM'S. IV INFILTRATED ANF RIGHT ARM TENDER TO THE TOUCH.PT IS CONFUSED AND IS ANXIOUS ABOUT RESTRAINTS. HE WILL CALL AND REQUEST TO HAVE THEM MADE TIGHTER, BUT WILL THEN CALL AND ASK STAFF TO LOOSEN THEM. HIS REPPIRATIONS STILL ARE AROUND [address] CONSULTED CHEST XRAY. NO NEW ORDERS. CALL LIGHT WITHIN REACH.
[2021-08-01 05:00] LABS: International Normalized Ratio 1.29; Prothrombin Time Results 13.3 Sec (9.7-11.5)
[2021-08-01 05:11] LABS: Albumin, Blood 1.7 g/dL (3.4-5.0); Albumin/Globulin Ratio 0.4 (0.8-1.8); BAND PERCENT MAN 3 % (0-8); BASOPHILS PERCENT MAN 0 % (0-2); Bilirubin, Total 1.2 mg/dL (0.1-1.0); Bun/Creatinine Ratio 22.2 (12.0-20.0); Calcium, Blood 8.9 mg/dL (8.5-10.1); Creatinine, Blood 1.89 mg/dL (0.60-1.20); EOSINOPHILS PERCENT MAN 0 % (0-6); Globulin, Blood 3.9 g/dL (2.2-4.0); LYMPHOCYTES ABSOLUTE MAN 0.31 K/mm3 (0.84-5.20); LYMPHOCYTES PERCENT MAN 3 % (21-46); MONOCYTES ABSOLUTE MAN 0.42 K/mm3 (0.16-1.47); MONOCYTES PERCENT MAN 4 % (4-13); MYELOCYTE ABSOLUTE MAN 0.21 K/mm3 (0.00-0.00); MYELOCYTE PERCENT MAN 2 % (0-0); NEUTROPHILS ABSOLUTE MAN 9.66 K/mm3 (1.96-9.15); Potassium, Blood 4.5 mmol/L (3.5-5.5); SEG NEUTROPHILS PERCENT MAN 88 % (41-73); TOTAL CELLS COUNTED 100; Total Protein, Blood 5.6 g/dL (6.4-8.2)
--- NOTE | 2021-08-01 08:44 | NUR ---
PATIENT TUBE FEEDING PAUSED DUE TO PATIENT APPEARING FULL. DENIES ANY NAUSEA BUT STATED HE FEELS FULL AFTER FLUSHING THE LINE.
--- NOTE | 2021-08-01 17:05 | NUR ---
ENEMA INSTILLED. AFTER A COUPLE MINS PATIENT HAD URGE AND ABLE TO HAVE BM.
--- NOTE | 2021-08-01 17:47 | NUR ---
PATIENT'S PRESENTED A LETTER STATING THAT PATIENT AND FAMILY ARE WANTING PATIENT IN RESTRAINTS. CHARGE NURSE NOTIFIED. POA FORM WAS REQUESTED TO HAVE IN PATIENTS CHART WELL BUT HAS NOT BEEN BROUGHT IN YET. WHEN PUTTING RESTRAINTS ON PATIENT, PATIENT DOES VERBALIZE HE WANTS THE RESTRAINTS ON.
--- NOTE | 2021-08-01 17:50 | NUR ---
SHIFT SUMMARY PATIENT A&0 3-4, BECOMES CONFUSED WHEN SLEEPY. TUBE FEEDING STOPPED THIS AM DUE TO PATIENT INCREASED DISTENTION AND STATING HE FELT FULL. HICCUPING NOTED LATER WELL. PLAN TO REASSESS TOMORROW ABOUT RESTARTING TUBE FEEDINGS. CONTINUES TO HAVE SOFT BP AND RAPID HEART RATE AND RESPIRATIONS. ENEMA GIVEN AND PT ABLE TO HAVE BM THAT WAS A DARK BROWN AND CLUMPY. RESTRAINTS ON T/O SHIFT. PATIENT AND FAMILY REQUESTING RESTRAINTS TO PROTECT DOBHOFF. FAMILY AT BEDSIDE T/O SHIFT. WILL CONTINUE TO MONITOR.
--- NOTE | 2021-08-01 18:13 | NUR ---
PT VOMITING. CALLED DR SANDOVAL. GILES ZOFRAN 4MG IV Q6P.
--- NOTE | 2021-08-02 04:01 | NUR ---
PT HAD NOT VOIDED SINCE YESTERDAY MORNING AND HAD 414 ML IN HIS BLADDER WHEN SCANNED. HE WAS UNABLE TO TRY TO VOID. DR GAVE ORDER TO CATH SINCE PT HAD BEEN STRAIGHT CATHED PREVIOUSLY
--- NOTE | 2021-08-02 04:33 | NUR ---
SHIFT SUMMARY PT HAS REMAINED APETHETIC AND QUIT THIS EVENING. IS AT THE BEDSIDE. PT IS STILL IN RESTRAINTS, BUT THIS AUTHOR HAS NOTICED THAT NOW THAT IS AT THE BEDSIDE PT HAS NOT MADE MENTION OF ASKING FOR THEM TO BE REMOVED. HE WAS STILL RETAINING URIN AND DR ORDERED AN INDWELLING CATHETER TO HELP WITH RETNETION. HE DRAINED 200 ML DARK SEDIMENT URINE UPON INSERTION. PT SEEMS WEAKER THAN THE NIGHTBEFORE. HE TOLERATED HIS PO MED THROUGH NG TUBE. DENISH PAIN OR N/V. CALL LIGHT WITHIN REACH
[2021-08-02 07:56] LABS: BASOPHILS ABSOLUTE AUTO 0.02 K/mm3 (0.00-0.23); BASOPHILS PERCENT AUTO 0 % (0-2); EOSINOPHILS ABSOLUTE AUTO 0.04 K/mm3 (0.00-0.68); EOSINOPHILS PERCENT AUTO 0 % (0-6); Hematocrit 27.1 % (37.0-53.0); Hemoglobin 8.6 g/dL (13.5-17.5); IMMATURE GRAN PERCENT AUTO 1 % (0-1); LYMPHOCYTES ABSOLUTE AUTO 0.66 K/mm3 (0.84-5.20); LYMPHOCYTES PERCENT AUTO 7 % (21-46); MONOCYTES ABSOLUTE AUTO 0.42 K/mm3 (0.16-1.47); MONOCYTES PERCENT AUTO 5 % (4-13); Mean Corpuscular HGB 32.7 pg (26.0-34.0); Mean Corpuscular HGB Conc 31.7 g/dL (31.5-36.5); Mean Corpuscular Volume 103 fL (80-100); Mean Platelet Volume 10.6 fL (9.1-12.4); NEUTROPHILS ABSOLUTE AUTO 8.08 K/mm3 (1.96-9.15); NEUTROPHILS PERCENT AUTO 87 % (41-73); Platelet Count 222 K/mm3 (150-400); RDW Coefficient Variation 14.2 % (11.7-14.2); RDW Standard Deviation 53.7 fL (35.1-46.3); Red Blood Cell Count 2.63 M/mm3 (4.30-5.90); White Blood Cell Count 9.32 K/mm3 (4.00-11.30)
--- NOTE | 2021-08-02 08:00 | NUR ---
pt laying in bed with eyes half closed, slow to respond, somewhat confused, denies pain, on r/a, resp even and unlabored, no cough noted, hrr, tele in place running st per monitor, see strip, iv to lfa site is clear and patent, btx hypoactive, abd very distended and firm, mahoney cath draining tea colored urine, skin c/w/d, sallow, profoundly weak, eyes are goopy, dobhoff in place, not infusing. Dr. Sandoval here to talk to family about plan of care, restraints removed, call light in reach.
[2021-08-02 08:12] LABS: Albumin, Blood 1.6 g/dL (3.4-5.0); Albumin/Globulin Ratio 0.4 (0.8-1.8); Bilirubin, Total 1.1 mg/dL (0.1-1.0); Bun/Creatinine Ratio 20.3 (12.0-20.0); Calcium, Blood 9.1 mg/dL (8.5-10.1); Creatinine, Blood 2.51 mg/dL (0.60-1.20); Globulin, Blood 3.8 g/dL (2.2-4.0); Magnesium, Blood 1.8 mg/dL (1.6-2.4); Potassium, Blood 4.4 mmol/L (3.5-5.5); Total Protein, Blood 5.4 g/dL (6.4-8.2)
--- NOTE | 2021-08-02 10:16 | NUR ---
Spoke with Dr Sandoval and Primary RN Sandy. Dr Sandoval just finished conversation with family about considering comfort care. Pt and family are in agreement and Dr Sandoval will place comfort care orders. Spoke with Pt's sister and answered questions. Palliative Care will remain available for supportive visits.
--- NOTE | 2021-08-02 18:37 | NUR ---
pt was changed to comfort care this am, have medicated for pain once, he states he only has pain when he coughs, family is supportive at bedside. call light in reach.
--- NOTE | 2021-08-03 03:54 | NUR ---
PT IS DOING MUCH BETTER THIS EVENING. HE IS RESTING PEACEFULLY AND GETTING LONGER PERIODS OF SLEEP. HE HAS BEEN MEDICATED TWICE FOR PAIN AND AFTER 0.5 MG OF AATIVAN HE WAS ABLE TO RELAX AND GET INTO A COMFORTABLE POSITION. HE DENIES PAIN OR SHORTNESS OF BREATH AND STATES HE IS VERY COMFORTABLE. FAMILY IS AT THE BEDSIDE. CATHETER STILL DRAINING SMALL AMMOUNTS OF TEA COLORED URINE. CALL LIGHT WITHIN REACH.
--- NOTE | 2021-08-03 08:00 | NUR ---
pt resing in bed with eyes half closed, at bedside, he is able to respond with hi, but delayed, unable to say anything more, no s/s of distress, family at bedside, comfort cart in room, offered to call khushi, ricky declined. call light in reach.
--- NOTE | 2021-08-03 09:35 | NUR ---
Comfort Care Visit Pt resting in bed with his eyes partially closed. Pt non responsive during this RNs visit. Family at bedside. Gentle education of S/S Pt may experience during actively dying process. Educated family on the importance of speaking with Pt and reasurrance. Offered therapeutic listening and answered questions. Family expresses appreciation and report no other concerns at this time. Spoke with Primary RN Vadim prior to Pt visit and discussed case. Palliative Care will remain available.
--- NOTE | 2021-08-03 18:07 | NUR ---
pt resting comfortably, family at bedside, pallative care nurse has been in to offer support, has been medicated as needed. call light in reach.
--- NOTE | 2021-08-03 21:43 | NUR ---
STAFF CALLED TO ROOM, FAMILY STATED HE HAD TAKEN HIS LAST BREATH. LISTENED FOR 1 MIN WITH STETHYASMINEPE, NO HR BEAT HEARD. 2ND NURSE CHECK JOHN RN FOR HEART BEAT AND HEARD NOTHING, TOD 2109. FAMILY AT BEDSIDE TOOK PATIENTS BELONGINGS HOME, DENIED CHAPLEN CARE.
== END 2021-08-03 21:10 | DRG 871 ==
LOC: ER 16:01 → PCU 22:18 → MEDS 07-24 21:27
PROVIDERS: Family Medicine; Internal Medicine; Physician Assistant; Student in an Organized Health Care Education/Training Program; ADMIT Family Medicine
PROC: 30233N1 Transfusion of Nonautologous Red Blood Cells into Peripheral Vein, Percutaneous Approach (ICD-10-PCS; principal; 2021-07-18)
PROC: 0W9G3ZZ Drainage of Peritoneal Cavity, Percutaneous Approach (ICD-10-PCS; 2021-07-22)
PROC: 0W9G3ZZ Drainage of Peritoneal Cavity, Percutaneous Approach (ICD-10-PCS; 2021-07-28)
PROC: 3E0G76Z Introduction of Nutritional Substance into Upper GI, Via Natural or Artificial Opening (ICD-10-PCS; 2021-08-01)
DX: A41.9 Sepsis, unspecified organism (principal); K65.2 Spontaneous bacterial peritonitis; E43 Unspecified severe protein-calorie malnutrition; K92.1 Melena; N17.9 Acute kidney failure, unspecified; Z66 Do not resuscitate; Z51.5 Encounter for palliative care; D62 Acute posthemorrhagic anemia; C91.10 Chronic lymphocytic leukemia of B-cell type not having achieved remission; E87.1 Hypo-osmolality and hyponatremia; E87.2 Acidosis; I42.9 Cardiomyopathy, unspecified; J84.9 Interstitial pulmonary disease, unspecified; K76.6 Portal hypertension; E83.42 Hypomagnesemia; E87.6 Hypokalemia; Z78.1 Physical restraint status; R19.7 Diarrhea, unspecified; K72.90 Hepatic failure, unspecified without coma; R65.20 Severe sepsis without septic shock; N18.9 Chronic kidney disease, unspecified; J44.9 Chronic obstructive pulmonary disease, unspecified; K70.31 Alcoholic cirrhosis of liver with ascites; K21.9 Gastro-esophageal reflux disease without esophagitis; Z68.24 Body mass index [BMI] 24.0-24.9, adult; B95.4 Other streptococcus as the cause of diseases classified elsewhere; F10.20 Alcohol dependence, uncomplicated; I95.9 Hypotension, unspecified; N40.0 Benign prostatic hyperplasia without lower urinary tract symptoms; Z92.21 Personal history of antineoplastic chemotherapy; Z98.890 Other specified postprocedural states; Z87.891 Personal history of nicotine dependence; Z88.1 Allergy status to other antibiotic agents; Z88.8 Allergy status to other drugs, medicaments and biological substances; Z79.899 Other long term (current) drug therapy
CPT/HCPCS: 36415; 36430; 49083; 71045; 71046; 74177; 76705; 80048; 80053; 80069; 81001; 82040; 82042; 82105; 82140; 82248; 82945; 83605; 83615; 83690; 83735; 83880; 84100; 84145; 84157; 84484; 85014; 85018; 85025; 85027; 85610; 86850; 86900; 86901; 86923; 87040; 87070; 87077; 87086; 87106; 87186; 87205; 89051; 92526; 92610; 93005; 93010; 93306; 94640; 94664; 94760; 94762; 96365; 96366; 96368; 96375; 97110; 97116; 97162; 97166; 97530; 97535; 99285-25; A9270; C9113; J0696; J1956; J2060; J2405; J3411; J3475; J3480; J7030; J7040; J7120; P9016; P9041; P9046; Q9967